=== PATIENT | male | born 1995 | race Caucasian/White ===

== ENCOUNTER 2021-12-06 10:22 | Emergency (ER) | payer OTHER ==
[2021-12-06 10:53] VITALS: BP 152/80; PULSE 84; TEMP 98; BMI 35.7
[2021-12-06] MEDS ORDERED: KETOROLAC TROMETHAMINE 30 MG/1 ML VIAL IM ONE (12:01)
[2021-12-06] MEDS ORDERED: LIDOCAINE 5% TOPICAL PATCH TP ONE (12:01)
[2021-12-06] MEDS ORDERED: LIDOCAINE 5% TOPICAL PATCH ONE (12:03)
[2021-12-06] MEDS ORDERED: KETOROLAC TROMETHAMINE 30 MG/1 ML VIAL ONE (12:03)
[2021-12-06] MEDS ORDERED: LIDOCAINE PATCH REMOVAL MC ONE (22:00)
== END 2021-12-06 12:39 | disposition home or self-care (01) ==
LOC: JERFT 10:22 → JER 10:22 → JERFT 12:39
PROC: 3E0233Z Introduction of Anti-inflammatory into Muscle, Percutaneous Approach (ICD-10-PCS; principal; 2021-12-06)
DX: M54.50 Low back pain, unspecified (principal); V49.50XA Passenger injured in collision with unspecified motor vehicles in traffic accident, initial encounter
CPT/HCPCS: 99284-25

== ENCOUNTER 2023-09-08 16:43 | Emergency (ER) | payer OTHER ==
[2023-09-08 17:00] VITALS: BP 151/84; RESP 18; BMI 27.9
[2023-09-08] MEDS ORDERED: ONDANSETRON 4 MG/2 ML VIAL ONE (19:33)
[2023-09-08] MEDS ORDERED: ACETAMINOPHEN INJECTION 100 ML IVPB ONE (19:33)
[2023-09-08] MEDS: LACTATED RINGERS SOLUTION 1000 ML INFUS.BAG IV ONE (19:52)
[2023-09-08] MEDS: ACETAMINOPHEN 1000 MG/100 ML BAG IVPB ONE (19:52)
[2023-09-08] MEDS: ONDANSETRON 4 MG/2 ML VIAL IVPUSH ONE (19:52)
[2023-09-08 19:58] LABS: BASO % 0.3 % (0-2.0); HEMATOCRIT 43.7 % (35.4-49); HEMOGLOBIN 15.1 GM/dL (11.7-16.9); LYMPH % 18.8 % (8-40); MCH 28.7 pg (25.7-33.7); MCHC 34.4 g/dl (32.0-35.9); MEAN CELL VOLUME 83.3 fl (80-96); MEAN PLT VOLUME 7.6 fl (7.5-11.1); NEUT % 65.9 % (42.8-82.8); PLATELET COUNT 191 10^3/uL (134-434); RBC 5.25 M/mm3 (4.00-5.60); WHITE BLOOD COUNT 5.4 K/mm3 (4.0-10.0)
[2023-09-08 20:08] LABS: PH,URINE 6.5 (5.0-8.0); URINE APPEARANCE CLEAR; URINE BILIRUBIN NEGATIVE (NEGATIVE); URINE COLOR YELLOW; URINE GLUCOSE (UA) NEGATIVE (NEGATIVE); URINE KETONE TRACE (NEGATIVE); URINE LEUK ESTERASE NEGATIVE (NEGATIVE); URINE NITRITE NEGATIVE (NEGATIVE); URINE PROTEIN TRACE (NEGATIVE)
[2023-09-08 20:14] LABS: POTASSIUM 3.8 mmol/L (3.5-5.1)
[2023-09-08 20:16] LABS: CALCIUM 8.9 mg/dL (8.5-10.1)
[2023-09-08 20:17] LABS: BLOOD UREA NITROGEN 9.6 mg/dL (7-18); MAGNESIUM 2.2 mg/dL (1.8-2.4)
[2023-09-08] MEDS ORDERED: FAMOTIDINE 20 MG/50 ML IVPB 20 MG/50 ML MG IVPB ONE (20:18)
[2023-09-08 20:19] LABS: CREATININE 0.9 mg/dL (0.55-1.3)
[2023-09-08 20:21] LABS: BILIRUBIN,TOTAL 0.7 mg/dL (0.2-1); TOT PROT 8.1 g/dl (6.4-8.2)
[2023-09-08] MEDS: FAMOTIDINE 20 MG/50 ML IVPB 20 MG/50 ML MG IVPB ONE (20:45)
[2023-09-08] MEDS: SODIUM CHLORIDE 0.9% 500 ML INFUS.BAG IV ONE (21:07)
[2023-09-08 22:43] VITALS: TEMP 98.4
[2023-09-08 23:05] LABS: POTASSIUM 3.8 mmol/L (3.5-5.1)
[2023-09-08 23:08] LABS: BLOOD UREA NITROGEN 7.6 mg/dL (7-18); CALCIUM 8.3 mg/dL (8.5-10.1)
[2023-09-08 23:12] LABS: CREATININE 0.8 mg/dL (0.55-1.3)
[2023-09-09 00:21] VITALS: PULSE 87
== END 2023-09-09 00:23 | disposition home or self-care (01) ==
LOC: JER 16:43
PROC: 3E033GC Introduction of Other Therapeutic Substance into Peripheral Vein, Percutaneous Approach (ICD-10-PCS; principal; 2023-09-08)
PROC: 3E033GC Introduction of Other Therapeutic Substance into Peripheral Vein, Percutaneous Approach (ICD-10-PCS; 2023-09-08)
DX: R07.89 Other chest pain (principal); M79.10 Myalgia, unspecified site; M54.9 Dorsalgia, unspecified; R11.2 Nausea with vomiting, unspecified; R19.7 Diarrhea, unspecified; R50.9 Fever, unspecified; R00.0 Tachycardia, unspecified; J10.1 Influenza due to other identified influenza virus with other respiratory manifestations; Z20.822 Contact with and (suspected) exposure to COVID-19
CPT/HCPCS: 0241U-QW; 36415; 71045-TC-FY; 80048; 80053; 81003; 83690; 83735; 84484; 85025; 87086; 93005; 93010; 99285-25; J0131

== ENCOUNTER 2025-04-23 10:03 | Observation (INO) | payer OTHER ==
[2025-04-23] MEDS ORDERED: FAMOTIDINE 20 MG/50 ML IVPB 20 MG/50 ML MG IVPB ONE (10:44)
[2025-04-23] MEDS ORDERED: ACETAMINOPHEN INJECTION 100 ML ONE (10:47)
[2025-04-23 11:12] LABS: ABSOLUTE IMMATURE GRANULOCYTES 0.04 x10^3/uL (0.0-0.031); BASOPHILS # 0.03 x10^3/uL (0.01-0.08); EOSINOPHIL % 2.3 % (0.8-7.0); EOSINOPHILS # 0.20 x10^3/uL (0.04-0.54); MCHC 33.1 g/dl (32.3-36.5); MEAN CELL VOLUME 85.0 fl (79.0-92.2); MEAN PLT VOLUME 9.4 fl (9.4-12.4); MONOCYTE # 0.87 x10^3/uL (0.30-0.82); MONOCYTE % 10.1 % (5.3-12.2); RDW 12.7 % (12.0-15.6)
[2025-04-23] MEDS: ACETAMINOPHEN 1000 MG/100 ML BAG IVPB ONE (11:18)
[2025-04-23] MEDS: SODIUM CHLORIDE 1,000 ML IV STA (11:18)
[2025-04-23] MEDS: FAMOTIDINE 20 MG/50 ML IVPB 20 MG/50 ML MG IVPB ONE (11:18)
[2025-04-23 11:28] LABS: GLUCOSE,RANDOM 97.0 mg/dL (74-106)
[2025-04-23 11:29] LABS: TOT PROT 8.2 g/dl (6.4-8.2)
[2025-04-23 11:30] LABS: CO2 21.0 mmol/L (21-32)
[2025-04-23 11:31] LABS: ALK PHOS 102.0 U/L (40-150)
[2025-04-23 11:34] LABS: CREATININE 0.88 mg/dL (0.55-1.3); SGOT/AST 42.0 U/L (5-34); SGPT/ALT 78.0 U/L (0-55)
[2025-04-23] MEDS ORDERED: PIPERACILLIN/TAZOB 3.375 GM 3.375 GM/50 ML BAG IVPB ONE (14:18)
[2025-04-23] MEDS ORDERED: ACETAMINOPHEN 500 MG TABLET (FP) PO PRN (14:32)
[2025-04-23] MEDS: PIPERACILLIN/TAZOB 3.375 GM 3.375 GM in DEXTROSE 5%-WATER - 50 ML IVPB ONE (14:36)
[2025-04-23 14:58] VITALS: BMI 38.5
[2025-04-23] MEDS: LACTATED RINGERS SOLUTION 1,000 ML/1,000 ML INFUS.BAG IV SCH (15:40)
[2025-04-23 19:13] LABS: HIV INTERPRETATION PRESUMPTIVE POSITIVE (NEGATIVE)
[2025-04-24] MEDS: SODIUM CHLORIDE 1,000 ML IV SCH (01:30)
[2025-04-24 06:46] LABS: MCHC 32.8 g/dl (32.3-36.5); MEAN CELL VOLUME 83.9 fl (79.0-92.2); MEAN PLT VOLUME 9.4 fl (9.4-12.4); RDW 12.7 % (12.0-15.6)
[2025-04-24 07:05] LABS: GLUCOSE,RANDOM 87.0 mg/dL (74-106)
[2025-04-24 07:06] LABS: CO2 23.0 mmol/L (21-32)
[2025-04-24 07:11] LABS: CREATININE 0.78 mg/dL (0.55-1.3)
[2025-04-24 08:52] VITALS: TEMP 98.2
[2025-04-24 13:39] VITALS: BP 120/69; PULSE 73; RESP 19
[2025-04-24 15:20] LABS: TOT PROT 6.7 g/dl (6.4-8.2)
[2025-04-24 15:23] LABS: ALK PHOS 83.0 U/L (40-150)
[2025-04-24 15:26] LABS: SGOT/AST 32.0 U/L (5-34); SGPT/ALT 55.0 U/L (0-55)
== END 2025-04-24 15:54 | disposition home or self-care (01) ==
LOC: JER 10:03 → JERBED 13:49 → INTOOBSV 13:49 → UNDOADMOB 13:49 → JERBED 14:30 → J7W 14:39
PROVIDERS: ADMIT Internal Medicine; ATTEND Internal Medicine
PROC: 3E033GC Introduction of Other Therapeutic Substance into Peripheral Vein, Percutaneous Approach (ICD-10-PCS; principal; 2025-04-23)
PROC: 3E033NZ Introduction of Analgesics, Hypnotics, Sedatives into Peripheral Vein, Percutaneous Approach (ICD-10-PCS; 2025-04-23)
PROC: 3E0337Z Introduction of Electrolytic and Water Balance Substance into Peripheral Vein, Percutaneous Approach (ICD-10-PCS; 2025-04-23)
PROC: 3E03329 Introduction of Other Anti-infective into Peripheral Vein, Percutaneous Approach (ICD-10-PCS; 2025-04-23)
DX: K52.9 Noninfective gastroenteritis and colitis, unspecified (principal); I10 Essential (primary) hypertension; F17.290 Nicotine dependence, other tobacco product, uncomplicated
CPT/HCPCS: 36415; 74177-TC; 80048; 80053; 80076; 82272; 83690; 85025; 86803; 87045; 87046; 87209; 87324; 87389; 87427; 87449; 96361; 96365; 96367; 96375; 99285-25; G0378; Q9967